=== PATIENT | female | born 1955 | race Caucasian/White ===

== ENCOUNTER → 2016-12-05 | Outpatient (CLI) | payer OTHER ==
--- NOTE | 2016-12-07 08:40 | MAM ---
EXAM DESCRIPTION: 3D Screening BILATERAL CLINICAL HISTORY: 61 years, Female, Screening mammogram COMPARISON: December 31, 2013 TECHNIQUE: CC and MLO digital mammograms with 3-D tomosynthesis. No CAD utilized. FINDINGS: The breast parenchyma is heterogeneously dense which may decrease the sensitivity of mammography. There is an area of possible architectural distortion and asymmetric parenchymal density within the dense glandular tissue on the right breast seen best on CC tomographic images but thought to be central superior on the MLO view. This requires further evaluation with ultrasound directed to the central upper portion right breast. Benign microcalcifications are present. IMPRESSION: BIRAD CATEGORY: 0 INCOMPLETE FOLLOW-UP: Right breast ultrasound Electronically signed by: Valdemar Andrea MD 12/07/2016 8:39 AM CDT
== END | disposition home or self-care (01) ==
LOC: MAMMO 08:00
PROVIDERS: ATTEND Family Medicine
DX: Z12.31 Encounter for screening mammogram for malignant neoplasm of breast (principal)
CPT/HCPCS: 77063; G0202

== ENCOUNTER → 2017-02-27 | Outpatient (CLI) | payer OTHER ==
--- NOTE | 2017-02-27 15:35 | US ---
EXAM DESCRIPTION: Breast,Right: Ultrasound CLINICAL HISTORY: 61 yearsFemaleABNORMAL MAMMO. Focal asymmetry anterior right breast. COMPARISON: Digital 3-D screening tomosynthesis bilateral breast 12/05/2016. TECHNIQUE: Transcutaneous scanning of the anterior superior right breast utilizing two-dimensional and Doppler modes. Scanning performed by the defense attorney and Dr. Nelson. FINDINGS: Mostly heterogeneous fibroglandular tissue at the 1200 clock position of the right breast 3 to 5 cm from the nipple. Hypoechoic round nodule or cyst containing debris with well-defined borders and posterior acoustic enhancement measuring 10 x 6 mm. Nonvascular. Other tissue is not vascular. No definitive solid mass or simple cyst or parenchymal edema. No skin thickening. IMPRESSION: BI-RADS CATEGORY: 3 - PROBABLY BENIGN. Management: Short interval (6-month) follow-up right breast ultrasound and continued surveillance digital mammography. The FINDINGS and the follow-up plan were reviewed in person with the patient after the examination. Written communication explaining the IMPRESSION and follow-up will be mailed to the patient and referring care provider. Electronically signed by: Can Nelson MD 02/27/2017 3:33 PM [facility]
== END | disposition home or self-care (01) ==
LOC: MAMMO 14:17
PROVIDERS: ATTEND Family Medicine
DX: R92.8 Other abnormal and inconclusive findings on diagnostic imaging of breast (principal)

== ENCOUNTER → 2017-09-04 | Outpatient (CLI) | payer OTHER ==
--- NOTE | 2017-09-04 17:08 | MAM ---
EXAM DESCRIPTION: 3D Diagnostic, Right: Digital Mammography CLINICAL HISTORY: 61 yearsFemale6 [place] FU history sheet. COMPARISON: prior. No prior reports available. Reports from prior examinations also reviewed. Report from prior examination also reviewed. TECHNIQUE: Right breast CC LM MLO projection full-field images, 3-D tomosynthesis digital mammographic technique. Also right breast synthesized CC MLO LM full-field images. CAD not utilized. FINDINGS: The breast parenchymal density pattern is: Heterogeneously dense breast tissue, which may obscure small masses. No skin thickening or nipple retraction coarse calcification in a soft tissue mass posterior third lateral breast consistent with a degenerated fibroadenoma. Other solitary calcifications. No focal, stellate mass or density or, focal asymmetry. ULTRASOUND: Scanning at the 1200 clock position, 2 cm from the nipple. Hypoechoic nodule with parallel orientation partially well-defined margins and minimal areas of echogenicity. Predominantly posterior acoustic enhancement features. Dimensions 7.4 x 6.5 x 6.3 mm and nonvascular. Relatively stable since the prior study. Surrounding soft tissues is predominantly fibroglandular with minimal fatty echotexture. No other distinct solid mass or cyst. No large calcifications or parenchymal edema. No overlying skin changes. No abnormal Doppler vascularity. IMPRESSION: BI-RADS CATEGORY: 3 - PROBABLY BENIGN. Management: Short interval follow-up mammography and routine left breast digital mammography November 2017. Targeted right breast ultrasound at the same time of examination. The FINDINGS and the FOLLOW-UP plan were reviewed in person with the patient after the examination. Written communication explaining the IMPRESSION and FOLLOW-UP will be mailed to the patient and referring care provider. Electronically signed by: Can Nelson MD 09/04/2017 5:07 PM CDT
--- NOTE | 2017-09-04 17:09 | US ---
EXAM DESCRIPTION: Breast,Right: Ultrasound CLINICAL HISTORY: 61 yearsFemale6 [place] F/U nodular density in the right breast. COMPARISON: Digital diagnostic 3-D tomosynthesis RIGHT breast on this visit. Targeted right breast ultrasound 02/27/2017. TECHNIQUE: Transcutaneous scanning of the right breast utilizing two-dimensional and Doppler modes. Scanning performed by the repair welder and Dr. Nelson. FINDINGS: Scanning at the 1200 clock position, 2 cm from the nipple. Hypoechoic nodule with parallel orientation partially well-defined margins and minimal areas of echogenicity. Predominantly posterior acoustic enhancement features. Dimensions 7.4 x 6.5 x 6.3 mm and nonvascular. Relatively stable since the prior study. Surrounding soft tissues is predominantly fibroglandular with minimal fatty echotexture. No other distinct solid mass or cyst. No large calcifications or parenchymal edema. No overlying skin changes. No abnormal Doppler vascularity. IMPRESSION: 1. Bi-Rads Category 3: Probably Benign Findings. 2. Please refer to diagnostic right breast 3-D tomosynthesis mammographic examination and report on this visit. The FINDINGS and the FOLLOW-UP plan were reviewed in person with the patient after the examination. Written communication explaining the IMPRESSION and FOLLOW-UP will be mailed to the patient and referring care provider. Electronically signed by: Can Nelson MD 09/04/2017 5:07 PM CDT
== END ==
LOC: MAMMO 14:51
PROVIDERS: ATTEND Family Medicine
DX: R92.8 Other abnormal and inconclusive findings on diagnostic imaging of breast (principal)
CPT/HCPCS: 76641; 77065; G0279

== ENCOUNTER → 2018-04-18 | Outpatient (CLI) | payer OTHER ==
--- NOTE | 2018-04-18 17:43 | MAM ---
EXAM DESCRIPTION: 3D Diagnostic, Bilateral: Digital Mammography CLINICAL HISTORY: 62 yearsFemale6 MONTH FOLLOW UP . No complaints. No personal history of breast cancer. Remote family history of breast cancer. Childbirth. Postmenopausal x33 years. Currently on HRT. Prior benign biopsy right breast.. Lifetime risk of developing breast cancer (Tyrer-Cuzick model) percentage is not available. COMPARISON: Right breast diagnostic digital breast tomosynthesis 09/04/2017. Bilateral screening digital breast tomosynthesis 12/05/2016. Targeted right breast ultrasound July 05, 2017. Targeted right breast ultrasound included with this examination, 04/18/2018. No prior reports available.. TECHNIQUE: Bilateral CC LM MLO projection full-field images, digital mammographic tomosynthesis technique. CAD not available. FINDINGS: The breast parenchymal density pattern is: Heterogeneously dense breast tissue, which may obscure small masses. No skin thickening or nipple retraction soft tissue mass with coarse benign type calcifications in the posterior third of the right breast. Similar masses with calcifications in the left breast. Architectural distortion with scattered calcifications in the anterior third of the left breast is stable. Bilateral solitary microcalcifications and coarse calcifications. Focal asymmetry no longer present in the anterior third of the right breast at the 12:00 position. Ultrasound: Scanning at the upper right breast anterior third from the nipple posteriorly 4 cm. Heterogeneous fibroglandular and fatty echotexture. Region of interest seen on the prior study is no longer visualized. No dominant solid mass or distinct cyst. No parenchymal edema or large calcifications. No overlying skin changes or abnormal vascularity. IMPRESSION: Benign exam. BIRAD CATEGORY: 2 BENIGN FINDINGS. RECOMMENDATIONS: FOLLOW UP: Return to routine digital bilateral mammographic screening, one year interval from March 2018. The FINDINGS and the FOLLOW-UP plan were reviewed in person with the patient after the examination. Written communication explaining the IMPRESSION and FOLLOW-UP will be mailed to the patient and referring care provider. According to the [employer], yearly mammograms are recommended starting at age 40 and continuing as long as a woman is in good health. Any breast change noted on a breast self-exam should be reported promptly to the patient's healthcare provider. Breast MRI is recommended for women with an approximately 20-25% or greater lifetime risk of breast cancer, including women with a strong family history of breast or ovarian cancer and women who have been treated for Hodgkin's disease. A negative mammographic report should not delay tissue diagnosis in patients with significant clinical history or physical findings. Extremely dense breast tissue limits the sensitivity of digital mammography. Electronically signed by: Can Nelson MD 04/18/2018 5:42 PM [facility]
--- NOTE | 2018-04-18 17:46 | US ---
EXAM DESCRIPTION: Breast,Right: Ultrasound CLINICAL HISTORY: 62 yearsFemaleABNORMAL MAMMOGRAM COMPARISON: Digital diagnostic tomosynthesis bilateral breast on this visit. Previous targeted right breast ultrasound 09/04/2017. TECHNIQUE: Transcutaneous scanning of the right breast utilizing darby-scale and Doppler modes. Scanning performed by the golf club assembler and Dr. Nelson. FINDINGS: Scanning at the upper right breast anterior third from the nipple posteriorly 4 cm. Heterogeneous fibroglandular and fatty echotexture. Region of interest seen on the prior study is no longer visualized. No dominant solid mass or distinct cyst. No parenchymal edema or large calcifications. No overlying skin changes or abnormal vascularity. IMPRESSION: 1. Bi-Rads Category 2: Benign. 2. Please refer to bilateral diagnostic digital breast tomosynthesis examination and report on this visit. The FINDINGS and the FOLLOW-UP plan were reviewed in person with the patient after the examination. Written communication explaining the IMPRESSION and FOLLOW-UP will be mailed to the patient and referring care provider. Electronically signed by: Can Nelson MD 04/18/2018 5:45 PM [facility]
== END ==
LOC: MAMMO 10:30
PROVIDERS: ATTEND Family Medicine
DX: R92.8 Other abnormal and inconclusive findings on diagnostic imaging of breast (principal)
CPT/HCPCS: 76641; 77066; G0279

== ENCOUNTER → 2019-04-04 | Outpatient (CLI) | payer OTHER ==
--- NOTE | 2019-04-05 18:13 | US ---
EXAM DESCRIPTION: Liver: ULTRASOUND. CLINICAL HISTORY: ELEVATED LFTs COMPARISON: None. TECHNIQUE: Transabdominal scannin-dimensional and Doppler modes. FINDINGS: Gallbladder: Normal size with minimal sludge. No stones. No fluid around the gallbladder. No wall thickening. 2.3 mm. Non-tender with transducer pressure. Common bile duct: caliber 4.5 mm within normal limits. Liver: Increased echogenicity; contour liver capsule smooth where seen. No fluid around the liver. Intrahepatic biliary ducts normal caliber. Doppler hepatopedal flow portal vein. 9 mm. Long axis right lobe 12.0 cm. Pancreas: normal size and echogenicity. Duct not seen. Right kidney: long axis measures 9.1 cm. Normal cortical echogenicity. Normal cortical thickness. No echogenic stones or hydronephrosis. Aorta proximal: 1.6 cm normal caliber. IMPRESSION: 1. Fatty liver normal size, with normal ducts and physiologic vascularity. No focal masses. Smooth capsule with no ascites. Pancreas is negative. 2. Sludge in the gallbladder with no stones. No wall thickening or fluid. Nontender with transducer pressure. 3. right kidney unremarkable. Normal caliber of the aorta. Electronically signed by: Can Nelson MD 04/05/2019 6:11 PM [employer]
== END ==
LOC: US 07:52
PROVIDERS: ATTEND Family Medicine
DX: R94.5 Abnormal results of liver function studies (principal); K76.0 Fatty (change of) liver, not elsewhere classified; K82.9 Disease of gallbladder, unspecified